=== PATIENT | female | born 1940 | race Caucasian/White ===

== ENCOUNTER → 2016-04-25 | Outpatient (CLI) | payer OTHER | END | disposition home or self-care (01) | LOC: CDC 13:56 | DX: I45.10 Unspecified right bundle-branch block (principal); G56.01 Carpal tunnel syndrome, right upper limb; M79.641 Pain in right hand; M06.041 Rheumatoid arthritis without rheumatoid factor, right hand | CPT/HCPCS: 93000 ==

== ENCOUNTER 2016-07-15 13:49 | Inpatient (IN) | payer OTHER ==
[~2016-07-15] VITALS: Ht 154.9 cm; Wt 67.3 kg
[2016-07-15 15:04] LABS: HEMATOCRIT 45.3 % (36.0-46.0); MCH 29.2 PG (29.0-34.0); MCHC 32.5 G/DL (30.0-36.0); MCV 89.9 FL (83-99); MEAN PLAT.VOLUME 10.6 uM^3 (9.5-12.4); PLATELET COUNT 238 K/uL (156-360); RBC DIS.WIDTH-CV 14.4 % (11.8-14.6); RBC DIS.WIDTH-SD 47.3 % (39-53); RED BLOOD COUNT 5.04 M/uL (3.80-5.20); WHITE BLOOD COUNT 6.4 K/uL (4.1-10.2)
[2016-07-15 15:13] LABS: CHLORIDE 106 mEq/L (99-109); POTASSIUM 4.7 mEq/L (3.7-5.4); SODIUM 141 mEq/L (136-147)
[2016-07-15 15:14] LABS: GLUCOSE 99 mg/dL (70-99)
[2016-07-15 15:16] LABS: ANION GAP 11 MEQ/L (2-14)
[2016-07-15 15:18] LABS: GFR ESTIMATE (CALCULATED) 47 mL/min/
[2016-07-15 15:19] LABS: UREA NITROGEN (BUN) 22 mg/dL (9-23)
[2016-07-15 15:26] LABS: TROP-I INTERPRETATION NEGATIVE; TROPONIN-I < 0.01 ng/mL (0.0-0.30)
[2016-07-15] MEDS ORDERED: KENALOG,ARISTOC80 GM TP (18:05)
[2016-07-15] MEDS ORDERED: FLONASE16 G1 BOTH NARES (18:05)
[2016-07-15] MEDS ORDERED: CHLORHEXIDINE473 ML MM (18:06)
[2016-07-15] MEDS ORDERED: SIMVASTATIN40 MG PO (18:06)
[2016-07-15] MEDS ORDERED: CELEBREX200 MG PO (18:06)
[2016-07-15] MEDS ORDERED: CYMBALTA60 MG PO (18:06)
[2016-07-15 18:43] LABS: ADD MIUA? NO; BILIRUBIN NEGATIVE; BLOOD NEGATIVE; COLOR STRAW ((YELLOW)); GLUCOSE (STRIP) NEGATIVE; KETONES NEGATIVE; LEUKOCYTES NEGATIVE; NITRITE NEGATIVE; PROTEIN (STRIP) NEGATIVE; SPECIFIC GRAVITY 1.006 (1.000-1.030); UCUL ADDED? NO; UROBILINOGEN 0.2 MG/DL (0.2-1.0)
[2016-07-15 18:46] LABS: PROTHROMBIN TIME 10.2 (9.2-11.2); PTT 24.2 (25-32)
[2016-07-15 22:18] VITALS: BP 131/67
[2016-07-15 22:35] LABS: TROP-I INTERPRETATION NEGATIVE; TROPONIN-I < 0.01 ng/mL (0.0-0.30)
[2016-07-15 23:37] VITALS: BP 121/74
[2016-07-16 04:55] VITALS: BP 110/62
[2016-07-16 08:09] LABS: HEMATOCRIT 41.8 % (36.0-46.0); MCH 29.9 PG (29.0-34.0); MCHC 32.8 G/DL (30.0-36.0); MCV 91.3 FL (83-99); MEAN PLAT.VOLUME 11.3 uM^3 (9.5-12.4); PLATELET COUNT 228 K/uL (156-360); RBC DIS.WIDTH-CV 14.6 % (11.8-14.6); RBC DIS.WIDTH-SD 49.1 % (39-53); RED BLOOD COUNT 4.58 M/uL (3.80-5.20); WHITE BLOOD COUNT 5.3 K/uL (4.1-10.2)
[2016-07-16 08:33] LABS: ALKALINE PHOSPHATASE 94 IU/L (3-129); ANION GAP 7 MEQ/L (2-14); CHLORIDE 106 MEQ/L (99-109); GFR ESTIMATE (CALCULATED) > 59 mL/min/; GLUCOSE 88 mg/dL (70-99); POTASSIUM 4.8 MEQ/L (3.7-5.4); SAMPLE HEMOLYSIS CHECK 0; SAMPLE ICTERIC CHECK 0; SAMPLE LIPEMIA CHECK 0; SODIUM 141 MEQ/L (136-147); TOTAL BILIRUBIN 0.5 MG/DL (0.0-1.0); UREA NITROGEN (BUN) 20 mg/dL (9-23)
[2016-07-16 08:45] LABS: TROP-I INTERPRETATION NEGATIVE; TROPONIN-I < 0.01 ng/mL (0.0-0.30)
[2016-07-16 09:00] VITALS: BP 101/55
[2016-07-16 13:00] VITALS: BP 113/56
[2016-07-16] MEDS ORDERED: XARELTO15 MG PO (14:13)
[2016-07-16] MEDS ORDERED: LOPRESSOR25 MG PO (14:16)
[2016-07-16 17:00] VITALS: BP 110/73
== END 2016-07-16 17:06 | disposition home or self-care (01) | DRG 310 ==
LOC: EME 13:49 → 4EAST 18:50 → EDOF 18:50 → 4EAST 22:17
PROVIDERS: Emergency Medicine; Internal Medicine
DX: I48.91 Unspecified atrial fibrillation (principal); R94.31 Abnormal electrocardiogram [ECG] [EKG]; E78.00 Pure hypercholesterolemia, unspecified; F32.9 Major depressive disorder, single episode, unspecified; M19.90 Unspecified osteoarthritis, unspecified site; Z96.653 Presence of artificial knee joint, bilateral
CPT/HCPCS: 70450; 71020; 80048; 80053; 81003; 84443; 84484; 85027; 85610; 85730; 93005; 93306; 99281; 99285